=== PATIENT | female | born 1975 | race Caucasian/White ===

== ENCOUNTER 2021-04-05 22:00 | Emergency (ER) | payer SELFPAY | END 2021-04-06 00:59 | disposition other institution (70) | LOC: FER 22:00 | DX: S01.112A Laceration without foreign body of left eyelid and periocular area, initial encounter (principal); S00.12XA Contusion of left eyelid and periocular area, initial encounter; T76.11XA Adult physical abuse, suspected, initial encounter; Z23 Encounter for immunization; Y00.XXXA Assault by blunt object, initial encounter; Y92.009 Unspecified place in unspecified non-institutional (private) residence as the place of occurrence of the external cause | CPT/HCPCS: 70450; 70486; 73060; 90471; 90715; J0690; J1170; J2405 ==